=== PATIENT | female | born 1975 | race Caucasian/White ===

== ENCOUNTER 2017-12-20 09:40 | Outpatient (CLI) | payer BC ==
--- NOTE | 2017-12-24 13:29 | MMO ---
BILATERAL MAMMOGRAMS: History: Screening mammography. Comparison: Multiple prior studies from [facility] dated 05-18-16. FINDINGS: Scattered fibroglandular densities. No dominant mass or suspicious calcifications. This study is inte rpreted with the assistance of computer aided detection. IMPRESSION: BIRADS category 1 - negative. Suggest routine follow up. POS: [facility]
== END 2017-12-20 09:41 | disposition home or self-care (01) ==
LOC: SCSMAMMO 09:40
PROVIDERS: ATTEND Specialist
DX: Z12.31 Encounter for screening mammogram for malignant neoplasm of breast (principal)
CPT/HCPCS: 77067